=== PATIENT | female | born 1970 | race Caucasian/White ===

== ENCOUNTER 2018-09-16 09:35 | Emergency (ER) | payer OTHER ==
[~2018-09-16] VITALS: Ht 154.9 cm; Wt 82.6 kg
[~2018-09-16 09:35] MED LIST: ACET-1304; ALBU18; ALBU2TAB4; TOPI25TA32
[2018-09-16 09:41] VITALS: BP 179/94
[2018-09-16] MEDS ORDERED: KETOROLAC TROMETH 60MG/2ML VIAL IM ONE (10:45)
== END 2018-09-16 11:18 | disposition home or self-care (01) ==
LOC: ER 09:39
DX: M77.9 Enthesopathy, unspecified (principal); F17.210 Nicotine dependence, cigarettes, uncomplicated; J45.909 Unspecified asthma, uncomplicated; Z88.8 Allergy status to other drugs, medicaments and biological substances; Z79.899 Other long term (current) drug therapy; X50.1XXA Overexertion from prolonged static or awkward postures, initial encounter; Y93.89 Activity, other specified; Y92.69 Other specified industrial and construction area as the place of occurrence of the external cause; Y99.8 Other external cause status
CPT/HCPCS: 29105; 96372; 99283; J1885